=== PATIENT | female | born 1955 | race African-American/Black ===

== ENCOUNTER 2016-10-30 09:48 | Outpatient (CLI) | payer MEDICARE ==
[2016-10-30 10:42] LABS: ALT (SGPT) 13 U/L (0-55); AST (SGOT) 7 U/L (5-34); Albumin 4.2 g/dL (3.5-5.0); Alkaline Phosphatase 81 U/L (40-150); Anion Gap 13 mmol/L (10-20); BUN (Urea Nitrogen) 18 mg/dL (9.8-20.1); Bilirubin, Total 0.5 mg/dL (0.2-1.2); Calc. Creatinine Clearance 0 mL/min (70-130); Calcium 9.7 mg/dL (7.8-10.44); Carbon Dioxide 32 mmol/L (22-29); Cardiac Risk 5.7 (Less than 4.5); Chloride 96 mmol/L (98-107); Cholesterol 205 mg/dL (< 200 Desired); Estimated GFR-MDRD Greater than 90; Globulin 3.4 g/dL (2.4-3.5); Glucose 289 mg/dL (70-105); HDL Cholesterol 36 mg/dL (>60 Neg Risk); LDL Cholesterol, Calculated 130 mg/dL; Potassium 3.7 mmol/L (3.5-5.1); Protein, Total 7.6 g/dL (6.0-8.3); Sodium 137 mmol/L (136-145); Triglycerides 197 mg/dL (Less than 150)
== END 2016-10-30 09:49 | disposition home or self-care (01) ==
LOC: MADLABBHPM 09:48
PROVIDERS: ATTEND Family Medicine
DX: E11.65 Type 2 diabetes mellitus with hyperglycemia (principal)
CPT/HCPCS: 36415; 80053; 80061; 83036; 84443

== ENCOUNTER 2016-11-01 11:28 | Outpatient (CLI) | payer MEDICARE ==
[2016-11-01 18:35] LABS: Protein, Urine 30 mg/dL (1-14)
[2016-11-01 20:04] LABS: Collection Duration 24 hrs; Protein - 24 Hr 345 mg/24 hr (Less than 300); Urine Total Volume 1150 mL (600-1600)
== END 2016-11-01 11:29 | disposition home or self-care (01) ==
LOC: MADLABBHPM 11:28
PROVIDERS: ATTEND Family Medicine
DX: R80.9 Proteinuria, unspecified (principal)
CPT/HCPCS: 84156

== ENCOUNTER 2016-11-07 09:13 | Outpatient (CLI) | payer MEDICARE ==
--- NOTE | 2016-11-07 10:22 | RAD ---
LEFT SHOULDER THREE VIEWS: History: Fall three months ago, chronic pain. Comparison: None. FINDINGS: No acute fracture or malalignment. Mild degenerative disease of the acromioclavicular joint. There i s calcific tendinosis of the rotator cuff at the level of the supraspinatus tendon. IMPRESSION: 1. No acute fracture or malalignment. 2. Mild calcific tendinosis of the rotator cuff. 3. No acute fracture or malalignment. POS: [facility]
== END 2016-11-07 09:14 | disposition home or self-care (01) ==
LOC: MADRAD 09:13
PROVIDERS: ATTEND Family Medicine
DX: M25.512 Pain in left shoulder (principal)

== ENCOUNTER 2017-01-06 08:30 | Outpatient (CLI) | payer MEDICARE, OTHER ==
[2017-01-06 09:08] LABS: Hemoglobin A1c 8.5 % (4.0-6.0)
[2017-01-06 09:10] LABS: ALT (SGPT) 19 U/L (8-55); AST (SGOT) 9 U/L (5-34); Alkaline Phosphatase 82 U/L (40-150); Anion Gap 12 mmol/L (10-20); BUN (Urea Nitrogen) 12 mg/dL (9.8-20.1); Bilirubin, Total 0.4 mg/dL (0.2-1.2); Calc. Creatinine Clearance 0 mL/min (70-130); Carbon Dioxide 27 mmol/L (22-29); Cardiac Risk 4.6 (Less than 4.5); Chloride 106 mmol/L (98-107); Cholesterol 175 mg/dl (< 200 Desired); Estimated GFR-MDRD Greater than 90; Globulin 3.1 g/dL (2.4-3.5); Glucose 134 mg/dL (70-105); HDL Cholesterol 38 mg/dL (>60 Neg Risk); LDL Cholesterol, Calculated 115 mg/dL; Protein, Total 7.1 g/dL (6.0-8.3); Sodium 141 mmol/L (136-145); Triglycerides 111 mg/dL (Less than 150)
== END 2017-01-06 08:31 ==
LOC: MADLABBHPM 08:30
PROVIDERS: ATTEND Family Medicine
DX: E11.65 Type 2 diabetes mellitus with hyperglycemia (principal)
CPT/HCPCS: 36415; 80053; 80061; 83036

== ENCOUNTER 2018-04-28 23:32 | Emergency (ER) | payer MEDICARE ==
[2018-04-29 00:27] LABS: INR-International Normal Ratio 0.9
[2018-04-29 00:28] LABS: PTT 31.6 SEC (22.9-36.1)
[2018-04-29 00:37] LABS: ALT (SGPT) 14 U/L (8-55); AST (SGOT) 8 U/L (5-34); Albumin 4.1 g/dL (3.5-5.0); Alkaline Phosphatase 80 U/L (40-150); Anion Gap 15 mmol/L (10-20); BUN (Urea Nitrogen) 18 mg/dL (9.8-20.1); Bilirubin, Total 0.3 mg/dL (0.2-1.2); Calc. Creatinine Clearance 0 mL/min (70-130); Calcium 9.6 mg/dL (7.8-10.44); Carbon Dioxide 28 mmol/L (22-29); Chloride 101 mmol/L (98-107); Estimated GFR-MDRD 84; Globulin 3.4 g/dL (2.4-3.5); Glucose 140 mg/dL (70-105); Potassium 3.7 mmol/L (3.5-5.1); Protein, Total 7.5 g/dL (6.0-8.3); Sodium 140 mmol/L (136-145)
[2018-04-29 00:40] LABS: Eosinophils 3 % (0-10); Hemoglobin 14.5 g/dL (12.0-16.0); Lymphocytes 42 % (21-51); MDiff Complete? YES; Mean Corpuscular HGB CONC 33.7 g/dL (32.0-36.0); Mean Corpuscular Hemoglobin 29.9 pg (27.0-31.0); Mean Corpuscular Volume 88.9 fL (78.0-98.0); Mean Platelet Volume 6.3 fL (7.4-10.4); Monocytes 2 % (0-10); Neutrophil 50 % (42-75); PLT Morphology Comment Appears Adequate; Platelet Count 311 thou/uL (130-400); RBC Distribution Width 11.8 % (11.5-14.5); RBC Morphology Normal; Reactive Lymphocytes 3 % (0-10); Red Blood Cell (RBC) Count 4.83 mill/uL (4.20-5.40); White Blood Cell (WBC) Count 10.1 thou/uL (4.8-10.8)
== END 2018-04-29 01:22 | disposition home or self-care (01) ==
LOC: MADERS 23:32
DX: T63.001A Toxic effect of unspecified snake venom, accidental (unintentional), initial encounter (principal); E11.9 Type 2 diabetes mellitus without complications; E78.5 Hyperlipidemia, unspecified; E66.9 Obesity, unspecified; F41.9 Anxiety disorder, unspecified; F32.9 Major depressive disorder, single episode, unspecified; F17.210 Nicotine dependence, cigarettes, uncomplicated; I10 Essential (primary) hypertension; K21.9 Gastro-esophageal reflux disease without esophagitis
CPT/HCPCS: 36415; 80053; 85025; 85384; 85610; 85730; 99283

== ENCOUNTER 2018-04-29 07:08 | Emergency (ER) | payer MEDICARE ==
[2018-04-29 08:20] LABS: Hemoglobin 14.3 g/dL (12.0-16.0); Mean Corpuscular HGB CONC 33.4 g/dL (32.0-36.0); Mean Corpuscular Hemoglobin 29.7 pg (27.0-31.0); Mean Platelet Volume 6.2 fL (7.4-10.4); Platelet Count 300 thou/uL (130-400); RBC Distribution Width 11.9 % (11.5-14.5); Red Blood Cell (RBC) Count 4.81 mill/uL (4.20-5.40)
[2018-04-29 08:27] LABS: INR-International Normal Ratio 0.9; PTT 32.7 SEC (22.9-36.1); Prothrombin Time 12.2 SEC (12.0-14.7)
[2018-04-29 08:29] LABS: Anisocytosis SLIGHT = 6-15 cells (100X) (0-5/hpf); Lymphocytes 35 % (21-51); MDiff Complete? YES; Manual Diff?? YES; Monocytes 10 % (0-10); Neutrophil 55 % (42-75)
[2018-04-29 08:30] LABS: PLT Morphology Comment Appears Increased
[2018-04-29 08:37] LABS: ALT (SGPT) 14 U/L (8-55); AST (SGOT) 7 U/L (5-34); Alkaline Phosphatase 80 U/L (40-150); Anion Gap 15 mmol/L (10-20); BUN (Urea Nitrogen) 16 mg/dL (9.8-20.1); Bilirubin, Total 0.3 mg/dL (0.2-1.2); Calc. Creatinine Clearance 0 mL/min (70-130); Calcium 9.5 mg/dL (7.8-10.44); Carbon Dioxide 27 mmol/L (22-29); Chloride 102 mmol/L (98-107); Estimated GFR-MDRD Greater than 90; Globulin 3.4 g/dL (2.4-3.5); Glucose 141 mg/dL (70-105); Potassium 3.7 mmol/L (3.5-5.1); Protein, Total 7.4 g/dL (6.0-8.3); Sodium 140 mmol/L (136-145)
== END 2018-04-29 08:55 | disposition home or self-care (01) ==
LOC: MADERS 07:08
DX: T63.061A Toxic effect of venom of other North and South American snake, accidental (unintentional), initial encounter (principal); M79.671 Pain in right foot; E11.9 Type 2 diabetes mellitus without complications; E78.5 Hyperlipidemia, unspecified; F41.9 Anxiety disorder, unspecified; F32.9 Major depressive disorder, single episode, unspecified; E66.9 Obesity, unspecified; F17.210 Nicotine dependence, cigarettes, uncomplicated; I10 Essential (primary) hypertension; K21.9 Gastro-esophageal reflux disease without esophagitis
CPT/HCPCS: 85384; 99283

== ENCOUNTER 2018-10-06 14:10 | Emergency (ER) | payer MEDICARE ==
--- NOTE | 2018-10-06 14:56 | RAD ---
LEFT ANKLE 3 VIEWS: Date: 10/06/18 HISTORY: Ankle injury. FINDINGS: There are vascular calcifications noted. The lateral view is very obliqued and therefore difficult to assess. There is spurring along the medial malleolus. There is ossification which is near the talona vicular joint. It may be related to an os naviculare, difficult to assess on these views. Calcaneal s purs are present. I do not see any signs of fracture. IMPRESSION: No evidence of fracture. Assessment of the foot is limited due to the orientation of the images. POS: [facility]
[2018-10-06] MEDS ORDERED: HYDROcodone/Acetaminophen 5/325 mg Tablet ONE (15:47)
[2018-10-06] MEDS ORDERED: Clindamycin 150 MG CAP ONE (15:47)
== END 2018-10-06 16:11 | disposition short-term general hospital (02) ==
LOC: MADERS 14:10
DX: S90.512A Abrasion, left ankle, initial encounter (principal); M79.89 Other specified soft tissue disorders; L03.116 Cellulitis of left lower limb; E11.9 Type 2 diabetes mellitus without complications; E78.5 Hyperlipidemia, unspecified; E66.9 Obesity, unspecified; M10.9 Gout, unspecified; M19.90 Unspecified osteoarthritis, unspecified site; K21.9 Gastro-esophageal reflux disease without esophagitis; F41.9 Anxiety disorder, unspecified; F32.9 Major depressive disorder, single episode, unspecified; F17.210 Nicotine dependence, cigarettes, uncomplicated; Z79.51 Long term (current) use of inhaled steroids; Z79.899 Other long term (current) drug therapy; W19.XXXA Unspecified fall, initial encounter

== ENCOUNTER 2019-01-28 12:20 | Outpatient (CLI) | payer MEDICARE ==
[2019-01-28 13:05] LABS: #Basophils 0.1 thou/uL (0.0-0.2); #Eosinphils 0.1 thou/uL (0.0-0.7); #Lymphocytes 2.5 thou/uL (1.20-3.40); #Monocytes 0.5 thou/uL (0.11-0.59); #Neutrophils 4.4 thou/uL (1.40-6.50); %Basophils 1.7 % (0.0-1.0); %Eosinophils 1.8 % (0.0-10.0); %Lymphocytes 32.5 % (21.0-51.0); %Monocytes 6.3 % (0.0-10.0); %Neutrophils 57.8 % (42.0-75.0); Hemoglobin 14.6 g/dL (12.0-16.0); Mean Corpuscular Hemoglobin 28.4 pg (27.0-31.0); Mean Corpuscular Volume 88.8 fL (78.0-98.0); Mean Platelet Volume 6.3 fL (7.4-10.4); Platelet Count 250 thou/uL (130-400); RBC Distribution Width 12.4 % (11.5-14.5); Red Blood Cell (RBC) Count 5.13 mill/uL (4.20-5.40); White Blood Cell (WBC) Count 7.6 thou/uL (4.8-10.8)
[2019-01-28 13:20] LABS: INR-International Normal Ratio 0.9; PTT 31.8 SEC (22.9-36.1); Prothrombin Time 12.3 SEC (12.0-14.7)
== END 2019-01-28 12:21 | disposition home or self-care (01) ==
LOC: MADLAB 12:20
PROVIDERS: ATTEND Chiropractor
DX: Z01.812 Encounter for preprocedural laboratory examination (principal)
CPT/HCPCS: 36415; 85025; 85610; 85730

== ENCOUNTER 2020-04-10 11:40 | Emergency (ER) | payer MEDICARE ==
--- NOTE | 2020-04-10 12:20 | RAD ---
EXAM: XR Chest 1 View Portable PROVIDED CLINICAL HISTORY: Dyspnea COMPARISON: 07/22/2016 FINDINGS: Cardiac silhouette remains enlarged. Prominence of the pulmonary vasculature and pulmonary interstiti um persists. Evaluation is limited by patient body habitus. No lobar consolidation, large effusion or pneumothorax evident. IMPRESSION: Cardiomegaly and findings suggesting congestive failure. Alveolar edema is not excluded. Follow-up is recommended.
[2020-04-10 12:41] LABS: #Basophils 0.1 thou/uL (0.0-0.2); #Eosinphils 0.2 thou/uL (0.0-0.7); #Lymphocytes 2.3 thou/uL (1.20-3.40); #Monocytes 0.5 thou/uL (0.11-0.59); #Neutrophils 6.7 thou/uL (1.40-6.50); %Basophils 0.6 % (0.0-1.0); %Eosinophils 1.8 % (0.0-10.0); %Lymphocytes 23.1 % (21.0-51.0); %Monocytes 5.5 % (0.0-10.0); %Neutrophils 68.9 % (42.0-75.0); Hemoglobin 12.3 g/dL (12.0-16.0); Mean Corpuscular HGB CONC 31.8 g/dL (32.0-36.0); Mean Corpuscular Hemoglobin 27.7 pg (27.0-31.0); Mean Corpuscular Volume 87.1 fL (78.0-98.0); Mean Platelet Volume 6.7 fL (7.4-10.4); Platelet Count 275 thou/uL (130-400); RBC Distribution Width 13.8 % (11.5-14.5); Red Blood Cell (RBC) Count 4.42 mill/uL (4.20-5.40); White Blood Cell (WBC) Count 9.8 thou/uL (4.8-10.8)
[2020-04-10 12:53] LABS: ALT (SGPT) 12 U/L (8-55); AST (SGOT) 7 U/L (5-34); Albumin 3.5 g/dL (3.4-4.8); Alkaline Phosphatase 77 U/L (40-110); Anion Gap 13 mmol/L (10-20); BUN (Urea Nitrogen) 15 mg/dL (9.8-20.1); Bilirubin, Total 0.4 mg/dL (0.2-1.2); Calc. Creatinine Clearance 0 mL/min (70-130); Calcium 8.5 mg/dL (7.8-10.44); Carbon Dioxide 27 mmol/L (23-31); Chloride 104 mmol/L (98-107); Estimated GFR-MDRD Greater than 90; Globulin 3.3 g/dL (2.4-3.5); Glucose 158 mg/dL (80-115); Protein, Total 6.8 g/dL (6.0-8.3); Sodium 141 mmol/L (136-145)
[2020-04-10] MEDS ORDERED: Furosemide 40 MG TAB ONE (14:35)
[2020-04-10] MEDS ORDERED: Potassium Chloride 20 MEQ TAB ONE (14:35)
[2020-04-10] MEDS ORDERED: Magnesium Oxide 400 MG TAB PO ONE (14:49)
== END 2020-04-10 14:58 | disposition home or self-care (01) ==
LOC: MADERS 11:40
DX: I11.0 Hypertensive heart disease with heart failure (principal); I50.9 Heart failure, unspecified; E87.6 Hypokalemia; E11.9 Type 2 diabetes mellitus without complications; K21.9 Gastro-esophageal reflux disease without esophagitis; E78.5 Hyperlipidemia, unspecified; E78.00 Pure hypercholesterolemia, unspecified; E66.9 Obesity, unspecified; F32.9 Major depressive disorder, single episode, unspecified; M10.9 Gout, unspecified; M47.816 Spondylosis without myelopathy or radiculopathy, lumbar region; F41.9 Anxiety disorder, unspecified; F17.210 Nicotine dependence, cigarettes, uncomplicated; Z79.899 Other long term (current) drug therapy; Z79.4 Long term (current) use of insulin
CPT/HCPCS: 71045; 83880; 84484; 85025; 93005

== ENCOUNTER 2020-08-21 02:39 | Emergency (ER) | payer MEDICARE ==
[2020-08-21] MEDS ORDERED: Ondansetron ODT 4 MG TAB ONE (03:05)
[2020-08-21 03:44] LABS: Hemoglobin 13.3 g/dL (12.0-16.0); Mean Corpuscular HGB CONC 32.4 g/dL (32.0-36.0); Mean Corpuscular Hemoglobin 28.4 pg (27.0-31.0); Mean Corpuscular Volume 87.8 fL (78.0-98.0); Mean Platelet Volume 7.3 fL (7.4-10.4); Platelet Count 265 thou/uL (130-400); RBC Distribution Width 12.8 % (11.5-14.5); White Blood Cell (WBC) Count 11.5 thou/uL (4.8-10.8)
[2020-08-21] MEDS ORDERED: Morphine 4 MG/ML VIAL ONE (03:44)
[2020-08-21 03:51] LABS: Band 1 % (5-11); Eosinophils 1 % (0-10); Lymphocytes 16 % (21-51); MDiff Complete? YES; Monocytes 7 % (0-10); Neutrophil 74 % (42-75); Platelet Morphology Comment Appears Adequate; RBC Morphology Normal
[2020-08-21 03:54] LABS: Anion Gap 16 mmol/L (10-20); BUN (Urea Nitrogen) 14 mg/dL (9.8-20.1); Calc. Creatinine Clearance 0 mL/min (70-130); Calcium 8.2 mg/dL (7.8-10.44); Carbon Dioxide 25 mmol/L (23-31); Chloride 103 mmol/L (98-107); Glucose 90 mg/dL (80-115); Magnesium 1.7 mg/dL (1.6-2.6); Potassium 3.4 mmol/L (3.5-5.1); Sodium 141 mmol/L (136-145)
[2020-08-21] MEDS ORDERED: Potassium Chloride 20 MEQ TAB ONE (04:04)
== END 2020-08-21 04:24 | disposition short-term general hospital (02) ==
LOC: MADERS 02:39
DX: M79.662 Pain in left lower leg (principal); M79.661 Pain in right lower leg; R60.0 Localized edema; M10.9 Gout, unspecified; E11.9 Type 2 diabetes mellitus without complications; J44.9 Chronic obstructive pulmonary disease, unspecified; I10 Essential (primary) hypertension; E78.5 Hyperlipidemia, unspecified; M19.90 Unspecified osteoarthritis, unspecified site; M51.36 Other intervertebral disc degeneration, lumbar region; E55.9 Vitamin D deficiency, unspecified; K21.9 Gastro-esophageal reflux disease without esophagitis; F17.210 Nicotine dependence, cigarettes, uncomplicated; Z79.899 Other long term (current) drug therapy; Z79.84 Long term (current) use of oral hypoglycemic drugs
CPT/HCPCS: 80048; 83735; 85025; 96374; J2270; Q0162

== ENCOUNTER 2020-09-25 08:50 | Emergency (ER) | payer MEDICARE ==
--- NOTE | 2020-09-25 18:40 | RAD ---
CHEST TWO VIEWS: 09/25/20 10:39 a.m. HISTORY: Chest pain. Shortness of breath. COMPARISON: 04/10/2020 FINDINGS: There is enlargement of the cardiac silhouette. Dorsal column stimulators overly the lower thoracic r egion. There is no pneumothorax. There is nonspecific interstitial opacity in the perihilar regions i n both lung bases with small bilateral pleural effusions. IMPRESSION: Pulmonary vascular congestion with perihilar and bibasilar interstitial prominence and small bilatera l pleural effusions. Findings suggest interstitial edema. Recommend short-term follow-up imaging following treatment to do cument resolution. Nonspecific infectious pneumonitis cannot be excluded. POS: [facility]
[2020-09-26 13:07] LABS: Hemoglobin 13.3 g/dL (12.0-16.0); Mean Corpuscular HGB CONC 32.3 g/dL (32.0-36.0); Mean Corpuscular Hemoglobin 28.7 pg (27.0-31.0); Mean Corpuscular Volume 88.7 fL (78.0-98.0); Platelet Count 270 thou/uL (130-400); RBC Distribution Width 13.1 % (11.5-14.5); Red Blood Cell (RBC) Count 4.65 mill/uL (4.20-5.40); White Blood Cell (WBC) Count 9.9 thou/uL (4.8-10.8)
[2020-09-26 13:08] LABS: #Basophils 0.2 thou/uL (0.0-0.2); #Eosinphils 0.2 thou/uL (0.0-0.7); #Lymphocytes 1.2 thou/uL (1.20-3.40); #Monocytes 0.9 thou/uL (0.11-0.59); #Neutrophils 7.4 thou/uL (1.40-6.50); %Basophils 1.7 % (0.0-1.0); %Eosinophils 2.3 % (0.0-10.0); %Lymphocytes 12.2 % (21.0-51.0); %Monocytes 8.8 % (0.0-10.0); Mean Platelet Volume 6.9 fL (7.4-10.4)
[2020-09-26 13:09] LABS: Potassium 3.2 mmol/L (3.5-5.1); Sodium 140 mmol/L (136-145)
[2020-09-26 13:10] LABS: AST (SGOT) 9 U/L (5-34); Albumin 3.7 g/dL (3.4-4.8); Alkaline Phosphatase 81 U/L (40-110); Anion Gap 14 mmol/L (10-20); BUN (Urea Nitrogen) 10 mg/dL (9.8-20.1); Bilirubin, Total 0.6 mg/dL (0.2-1.2); Calc. Creatinine Clearance 0 mL/min (70-130); Calcium 8.5 mg/dL (7.8-10.44); Carbon Dioxide 29 mmol/L (23-31); Chloride 100 mmol/L (98-107); Globulin 3.3 g/dL (2.4-3.5); Glucose 314 mg/dL (80-115)
[2020-09-26 13:12] LABS: ALT (SGPT) 14 U/L (8-55)
[2020-09-26 13:21] LABS: Troponin I 0.011 ng/mL (< 0.028)
[2020-09-26 14:01] LABS: Base Excess-Venous 2.1 mmol/L (-2.0 to 3.0); Bicarbonate (HCO3v) 29.7 mmol/L (22.0-28.0); CO2 Tension (PvCO2) 57.8 mmHg (40.0-50.0)
[2020-09-26 14:02] LABS: Calcium, Ionized 1.06 mmol/L (1.15-1.33); Chloride 101 mmol/L (98-107); Hemoglobin - Calc 14.1 g/dL (12.0-16.0); Potassium 3.2 mmol/L (3.5-5.1); Sodium 141 mmol/L (138-145); T. Carbon Dioxide 31.5 mmol/L (22.0-28.0); vO2 Saturation-calc 94.2 % (60.0-85.0)
== END 2020-09-25 11:49 | disposition home or self-care (01) ==
LOC: MADERS 08:50
DX: I11.0 Hypertensive heart disease with heart failure (principal); I50.9 Heart failure, unspecified; E87.6 Hypokalemia; E11.65 Type 2 diabetes mellitus with hyperglycemia; J44.9 Chronic obstructive pulmonary disease, unspecified; M10.9 Gout, unspecified; Z79.899 Other long term (current) drug therapy
CPT/HCPCS: 36415; 71046; 80053; 82330; 82435; 82803; 83880; 84132; 84295; 84484; 85014; 85025

== ENCOUNTER 2021-01-04 04:51 | Emergency (ER) | payer MEDICARE ==
[2021-01-04] MEDS ORDERED: HYDROcodone/Acetaminophen 10/325 mg Tablet ONE (05:39)
[2021-01-04] MEDS ORDERED: Ketorolac Tromethamine 30 MG/ML VIAL ONE (05:40)
[2021-01-04] MEDS ORDERED: Gabapentin 100 MG CAP ONE (05:40)
[2021-01-04] MEDS ORDERED: Acetaminophen 325 MG TAB ONE (05:40)
== END 2021-01-04 06:10 | disposition home or self-care (01) ==
LOC: MADERS 04:51
DX: M71.22 Synovial cyst of popliteal space [Baker], left knee (principal); E11.9 Type 2 diabetes mellitus without complications; E78.5 Hyperlipidemia, unspecified; I10 Essential (primary) hypertension; J44.9 Chronic obstructive pulmonary disease, unspecified; F17.210 Nicotine dependence, cigarettes, uncomplicated; Z79.899 Other long term (current) drug therapy
CPT/HCPCS: 96374; J1885

== ENCOUNTER 2021-02-01 13:32 | Inpatient (IN) | payer MEDICARE ==
[2021-02-01 15:25] VITALS: BMI 46.7
[2021-02-01] MEDS ORDERED: Dextrose 50% Abboject 50 ML SYRINGE SLOW IVP PRN (18:55)
[2021-02-01] MEDS ORDERED: Gabapentin 300 MG CAP PO SCH (21:00)
[2021-02-01] MEDS: Atorvastatin Calcium 40 MG TAB PO SCH (21:21)
[2021-02-01] MEDS: Gabapentin 300 MG CAP PO SCH (21:21)
[2021-02-01] MEDS: Colchicine 0.6 MG TAB PO SCH (21:21)
[2021-02-01] MEDS: Lantus 1000 UNITS/10 ML VIAL SC SCH (21:24)
[2021-02-02] MEDS: Lantus 1000 UNITS/10 ML VIAL SC SCH ×2 (08:19→21:06)
[2021-02-02] MEDS: Venlafaxine HCl 37.5 MG TAB PO SCH (08:20)
[2021-02-02] MEDS: Losartan Potassium 50 MG TAB PO SCH ×2 (08:20→08:21)
[2021-02-02] MEDS: Amlodipine 5 MG TAB PO SCH (08:20)
[2021-02-02] MEDS: Ezetimibe 10 MG TAB PO SCH (08:21)
[2021-02-02] MEDS: Colchicine 0.6 MG TAB PO SCH ×2 (08:23→21:07)
[2021-02-02] MEDS: Gabapentin 300 MG CAP PO SCH ×2 (08:23→21:07)
[2021-02-02] MEDS: Allopurinol 100 MG TAB PO SCH (08:23)
[2021-02-02] MEDS ORDERED: Colchicine 0.6 MG TAB PO SCH (09:00)
[2021-02-02] MEDS: Atorvastatin Calcium 40 MG TAB PO SCH (21:07)
[2021-02-03] MEDS: Venlafaxine HCl 37.5 MG TAB PO SCH (08:49)
[2021-02-03] MEDS: Colchicine 0.6 MG TAB PO SCH ×2 (08:49→20:08)
[2021-02-03] MEDS: Ezetimibe 10 MG TAB PO SCH (08:49)
[2021-02-03] MEDS: Amlodipine 5 MG TAB PO SCH (08:49)
[2021-02-03] MEDS: Allopurinol 100 MG TAB PO SCH (08:49)
[2021-02-03] MEDS: Gabapentin 300 MG CAP PO SCH ×2 (08:50→20:08)
[2021-02-03] MEDS: Lantus 1000 UNITS/10 ML VIAL SC SCH ×2 (08:51→20:08)
[2021-02-03] MEDS: Losartan Potassium 50 MG TAB PO SCH (08:52)
[2021-02-03] MEDS: Liraglutide [Victoza 2-Pak] 0.6 MG/0.1 ML Pen.Injctr SC SCH (14:19)
[2021-02-03] MEDS: Atorvastatin Calcium 40 MG TAB PO SCH (20:08)
[2021-02-03] MEDS: HumaLOG 300 UNITS/3 ML VIAL SC PRN (21:02)
[2021-02-04] MEDS: Acetaminophen 500 MG TAB PO PRN (02:15)
[2021-02-04 05:54] LABS: Anion Gap 11 mmol/L (10-20); BUN (Urea Nitrogen) 25 mg/dL (9.8-20.1); Calc. Creatinine Clearance 155 mL/min (70-130); Calcium 8.3 mg/dL (7.8-10.44); Carbon Dioxide 27 mmol/L (23-31); Chloride 110 mmol/L (98-107); Glucose 108 mg/dL (80-115); Potassium 3.9 mmol/L (3.5-5.1); Sodium 144 mmol/L (136-145)
[2021-02-04] MEDS: Lantus 1000 UNITS/10 ML VIAL SC SCH ×2 (09:37→21:01)
[2021-02-04] MEDS: Gabapentin 300 MG CAP PO SCH ×2 (09:38→21:01)
[2021-02-04] MEDS: Losartan Potassium 50 MG TAB PO SCH (09:38)
[2021-02-04] MEDS: Colchicine 0.6 MG TAB PO SCH ×2 (09:38→21:01)
[2021-02-04] MEDS: Ezetimibe 10 MG TAB PO SCH (09:38)
[2021-02-04] MEDS: Allopurinol 100 MG TAB PO SCH (09:39)
[2021-02-04] MEDS: Venlafaxine HCl 37.5 MG TAB PO SCH (09:39)
[2021-02-04] MEDS: Amlodipine 5 MG TAB PO SCH (09:39)
[2021-02-04] MEDS: Atorvastatin Calcium 40 MG TAB PO SCH (21:01)
[2021-02-05] MEDS: Acetaminophen 500 MG TAB PO PRN (08:36)
[2021-02-05] MEDS: Colchicine 0.6 MG TAB PO SCH ×2 (08:37→21:04)
[2021-02-05] MEDS: Losartan Potassium 50 MG TAB PO SCH (08:37)
[2021-02-05] MEDS: Gabapentin 300 MG CAP PO SCH ×2 (08:37→21:04)
[2021-02-05] MEDS: Venlafaxine HCl 37.5 MG TAB PO SCH (08:37)
[2021-02-05] MEDS: Ezetimibe 10 MG TAB PO SCH (08:37)
[2021-02-05] MEDS: Allopurinol 100 MG TAB PO SCH (08:38)
[2021-02-05] MEDS: Amlodipine 5 MG TAB PO SCH (08:38)
[2021-02-05] MEDS: Ibuprofen 600 MG TAB PO PRN (10:25)
[2021-02-05] MEDS: HumaLOG 300 UNITS/3 ML VIAL SC PRN ×2 (17:33→21:05)
[2021-02-05] MEDS ORDERED: Oxybutynin ER 5 MG TAB PO SCH (21:00)
[2021-02-05] MEDS: Atorvastatin Calcium 40 MG TAB PO SCH (21:04)
[2021-02-05] MEDS: Lantus 1000 UNITS/10 ML VIAL SC SCH (21:05)
[2021-02-06] MEDS: Lantus 1000 UNITS/10 ML VIAL SC SCH ×2 (08:25→21:09)
[2021-02-06] MEDS: Gabapentin 300 MG CAP PO SCH ×2 (08:26→21:08)
[2021-02-06] MEDS: Oxybutynin ER 5 MG TAB PO SCH (08:27)
[2021-02-06] MEDS: Venlafaxine HCl 37.5 MG TAB PO SCH (08:27)
[2021-02-06] MEDS: Allopurinol 100 MG TAB PO SCH (08:27)
[2021-02-06] MEDS: Ezetimibe 10 MG TAB PO SCH (08:28)
[2021-02-06] MEDS: Amlodipine 5 MG TAB PO SCH (08:28)
[2021-02-06] MEDS: Colchicine 0.6 MG TAB PO SCH ×2 (08:28→21:09)
[2021-02-06] MEDS: Losartan Potassium 50 MG TAB PO SCH (08:28)
[2021-02-06] MEDS: Acetaminophen 500 MG TAB PO PRN (14:39)
[2021-02-06] MEDS: Atorvastatin Calcium 40 MG TAB PO SCH (21:08)
[2021-02-07] MEDS: Acetaminophen 500 MG TAB PO PRN (08:32)
[2021-02-07] MEDS: Amlodipine 5 MG TAB PO SCH (08:33)
[2021-02-07] MEDS: Oxybutynin ER 5 MG TAB PO SCH (08:33)
[2021-02-07] MEDS: Colchicine 0.6 MG TAB PO SCH ×2 (08:33→21:19)
[2021-02-07] MEDS: Gabapentin 300 MG CAP PO SCH ×2 (08:33→21:20)
[2021-02-07] MEDS: Lantus 1000 UNITS/10 ML VIAL SC SCH ×2 (08:34→22:06)
[2021-02-07] MEDS: Losartan Potassium 50 MG TAB PO SCH (08:34)
[2021-02-07] MEDS: Venlafaxine HCl 37.5 MG TAB PO SCH (08:34)
[2021-02-07] MEDS: Ezetimibe 10 MG TAB PO SCH (08:34)
[2021-02-07] MEDS: Allopurinol 100 MG TAB PO SCH (08:34)
[2021-02-07] MEDS: HumaLOG 300 UNITS/3 ML VIAL SC PRN ×2 (11:51→17:04)
[2021-02-07] MEDS: Atorvastatin Calcium 40 MG TAB PO SCH (21:19)
[2021-02-07] MEDS ORDERED: Ondansetron ODT 4 MG TAB SL PRN (21:39)
[2021-02-08] MEDS: Lantus 1000 UNITS/10 ML VIAL SC SCH ×3 (01:34→21:04)
[2021-02-08] MEDS: Venlafaxine HCl 37.5 MG TAB PO SCH (08:05)
[2021-02-08] MEDS: Amlodipine 5 MG TAB PO SCH (08:06)
[2021-02-08] MEDS: Allopurinol 100 MG TAB PO SCH (08:06)
[2021-02-08] MEDS: Losartan Potassium 50 MG TAB PO SCH (08:06)
[2021-02-08] MEDS: Colchicine 0.6 MG TAB PO SCH ×2 (08:06→21:03)
[2021-02-08] MEDS: Ezetimibe 10 MG TAB PO SCH (08:06)
[2021-02-08] MEDS: Gabapentin 300 MG CAP PO SCH ×2 (08:06→21:04)
[2021-02-08] MEDS: Oxybutynin ER 5 MG TAB PO SCH (08:06)
[2021-02-08] MEDS: Acetaminophen 500 MG TAB PO PRN ×2 (10:51→19:29)
[2021-02-08] MEDS: Ibuprofen 600 MG TAB PO PRN (12:47)
[2021-02-08] MEDS ORDERED: Lisinopril 20 MG TAB PO SCH ×2 (17:45→18:00)
[2021-02-08] MEDS ORDERED: hydrALAZINE 25 MG TAB PO PRN (18:24)
[2021-02-08] MEDS ORDERED: hydrALAZINE 25 MG TAB PO SCH (18:30)
[2021-02-08] MEDS: Atorvastatin Calcium 40 MG TAB PO SCH (21:03)
[2021-02-09 07:59] VITALS: BP 142/66; TEMP 97.6
[2021-02-09] MEDS: Lantus 1000 UNITS/10 ML VIAL SC SCH (08:43)
[2021-02-09] MEDS: Oxybutynin ER 5 MG TAB PO SCH (08:45)
[2021-02-09] MEDS: Ibuprofen 600 MG TAB PO PRN (08:45)
[2021-02-09] MEDS: Venlafaxine HCl 37.5 MG TAB PO SCH (08:45)
[2021-02-09] MEDS: Amlodipine 5 MG TAB PO SCH (08:45)
[2021-02-09] MEDS: Allopurinol 100 MG TAB PO SCH (08:46)
[2021-02-09] MEDS: Colchicine 0.6 MG TAB PO SCH (08:46)
[2021-02-09] MEDS: Ezetimibe 10 MG TAB PO SCH (08:46)
[2021-02-09] MEDS: Gabapentin 300 MG CAP PO SCH (08:46)
[2021-02-09] MEDS: Losartan Potassium 50 MG TAB PO SCH (08:47)
[2021-02-09] MEDS ORDERED: Lisinopril 20 MG TAB PO SCH (09:00)
== END 2021-02-09 11:40 | disposition home health service (06) | DRG 948 ==
LOC: MADMS 15:20
PROVIDERS: ADMIT Family Medicine; ATTEND Family Medicine
DX: R53.81 Other malaise (principal); Z68.42 Body mass index [BMI] 45.0-49.9, adult; I10 Essential (primary) hypertension; E66.01 Morbid (severe) obesity due to excess calories; F41.9 Anxiety disorder, unspecified; F32.9 Major depressive disorder, single episode, unspecified; J45.909 Unspecified asthma, uncomplicated; G89.29 Other chronic pain; F17.210 Nicotine dependence, cigarettes, uncomplicated; M10.9 Gout, unspecified; E11.610 Type 2 diabetes mellitus with diabetic neuropathic arthropathy; E78.2 Mixed hyperlipidemia; W19.XXXA Unspecified fall, initial encounter; G47.33 Obstructive sleep apnea (adult) (pediatric); N32.81 Overactive bladder; E11.649 Type 2 diabetes mellitus with hypoglycemia without coma; Z88.1 Allergy status to other antibiotic agents; Z88.8 Allergy status to other drugs, medicaments and biological substances; Z91.040 Latex allergy status; Z88.2 Allergy status to sulfonamides; Z88.0 Allergy status to penicillin; Z79.4 Long term (current) use of insulin; Z79.899 Other long term (current) drug therapy; Z90.49 Acquired absence of other specified parts of digestive tract; Z90.710 Acquired absence of both cervix and uterus; Z96.82 Presence of neurostimulator; Z91.81 History of falling; Y92.009 Unspecified place in unspecified non-institutional (private) residence as the place of occurrence of the external cause
CPT/HCPCS: 36415; 36416; 80048; J1815; Q0162

== ENCOUNTER 2021-05-21 09:53 | Emergency (ER) | payer MEDICARE ==
[2021-05-21] MEDS ORDERED: Pantoprazole 40 MG VIAL ONE (10:56)
[2021-05-21] MEDS ORDERED: Ondansetron PF 4 MG/2 ML Vial ONE (10:56)
[2021-05-21 11:10] LABS: Bilirubin Negative (Negative); Blood, Urine Small (Negative); Glucose, Urine (Dipstick) Negative (Negative); Ketone, Urine Negative (Negative); Leukocyte Moderate (Negative); Nitrite Negative (Negative); Protein, Urine (Dipstick) > or equal to 300 mg/dL (Neg-Trace); Specific Gravity, Urine 1.025 (1.005-1.030); Urobilinogen 0.2 mg/dL (Less than 2)
[2021-05-21 11:12] LABS: Clarity Cloudy (Clear)
[2021-05-21 11:18] LABS: #Basophils 0.3 thou/uL (0.0-0.2); #Eosinphils 0.2 thou/uL (0.0-0.7); #Lymphocytes 1.3 thou/uL (1.20-3.40); #Monocytes 0.8 thou/uL (0.11-0.59); #Neutrophils 6.5 thou/uL (1.40-6.50); %Basophils 2.9 % (0.0-1.0); %Eosinophils 2.7 % (0.0-10.0); %Lymphocytes 14.3 % (21.0-51.0); %Monocytes 8.2 % (0.0-10.0); %Neutrophils 71.9 % (42.0-75.0); Hemoglobin 14.3 g/dL (12.0-16.0); Mean Corpuscular HGB CONC 31.4 g/dL (32.0-36.0); Mean Corpuscular Hemoglobin 28.9 pg (27.0-31.0); Mean Platelet Volume 6.3 fL (7.4-10.4); Platelet Count 338 thou/uL (130-400); RBC Distribution Width 13.1 % (11.5-14.5); Red Blood Cell (RBC) Count 4.96 mill/uL (4.20-5.40); White Blood Cell (WBC) Count 9.1 thou/uL (4.8-10.8)
[2021-05-21 11:19] LABS: WBC/HPF Greater Than 50 HPF (0-3)
[2021-05-21 11:20] LABS: Bacteria/HPF Rare-Few HPF (None Seen); RBC/HPF 0-3 HPF (0-3)
[2021-05-21 11:21] LABS: ALT (SGPT) 12 U/L (8-55); AST (SGOT) 8 U/L (5-34); Albumin 3.6 g/dL (3.4-4.8); Alkaline Phosphatase 87 U/L (40-110); Anion Gap 12 mmol/L (10-20); BUN (Urea Nitrogen) 16 mg/dL (9.8-20.1); Bilirubin, Total 0.5 mg/dL (0.2-1.2); Calc. Creatinine Clearance 0 mL/min (70-130); Calcium 9.3 mg/dL (7.8-10.44); Carbon Dioxide 26 mmol/L (23-31); Chloride 108 mmol/L (98-107); Globulin 3.3 g/dL (2.4-3.5); Glucose 103 mg/dL (80-115); Potassium 3.9 mmol/L (3.5-5.1); Protein, Total 6.9 g/dL (5.8-8.1); Sodium 142 mmol/L (136-145)
[2021-05-21 11:22] LABS: CK (CPK) 48 U/L (29-168); CRP (Inflammatory) Less than 0.50 mg/dL (= or < 0.5)
[2021-05-21] MEDS ORDERED: Ciprofloxacin Lactate/D5W 400 mg/200 ml Premix ONE (11:36)
== END 2021-05-21 13:10 | disposition home or self-care (01) ==
LOC: MADERS 09:53
DX: E11.649 Type 2 diabetes mellitus with hypoglycemia without coma (principal); N39.0 Urinary tract infection, site not specified; E78.5 Hyperlipidemia, unspecified; J44.9 Chronic obstructive pulmonary disease, unspecified; F17.210 Nicotine dependence, cigarettes, uncomplicated; Z79.899 Other long term (current) drug therapy
CPT/HCPCS: 36416; 71045; 80053; 81003; 81015; 82550; 83605; 84443; 84484; 85025; 86140; 87077; 87086; 87186; 93005; 94760; 96365; 96375; C9113; J0744; J2405

== ENCOUNTER 2021-07-12 17:43 | Emergency (ER) | payer MEDICARE ==
[~2021-07-12 17:43] MED LIST: Iopamidol 370 76% 100 ML VIAL ONE
[2021-07-12 18:41] LABS: #Basophils 0.1 thou/uL (0.0-0.2); #Eosinphils 0.1 thou/uL (0.0-0.7); #Lymphocytes 0.4 thou/uL (1.20-3.40); #Monocytes 0.4 thou/uL (0.11-0.59); #Neutrophils 8.4 thou/uL (1.40-6.50); %Basophils 0.8 % (0.0-1.0); %Eosinophils 0.7 % (0.0-10.0); %Lymphocytes 3.9 % (21.0-51.0); %Monocytes 4.1 % (0.0-10.0); %Neutrophils 90.5 % (42.0-75.0); Hemoglobin 14.3 g/dL (12.0-16.0); Mean Corpuscular HGB CONC 31.5 g/dL (32.0-36.0); Mean Corpuscular Hemoglobin 29.1 pg (27.0-31.0); Mean Corpuscular Volume 92.3 fL (78.0-98.0); Mean Platelet Volume 6.7 fL (7.4-10.4); Platelet Count 277 thou/uL (130-400); RBC Distribution Width 12.9 % (11.5-14.5); Red Blood Cell (RBC) Count 4.92 mill/uL (4.20-5.40); White Blood Cell (WBC) Count 9.3 thou/uL (4.8-10.8)
[2021-07-12 18:43] LABS: ALT (SGPT) 21 U/L (8-55); AST (SGOT) 13 U/L (5-34); Albumin 3.9 g/dL (3.4-4.8); Alkaline Phosphatase 101 U/L (40-110); Anion Gap 13 mmol/L (10-20); BUN (Urea Nitrogen) 18 mg/dL (9.8-20.1); Bilirubin, Total 0.6 mg/dL (0.2-1.2); Calc. Creatinine Clearance 0 mL/min (70-130); Carbon Dioxide 26 mmol/L (23-31); Chloride 107 mmol/L (98-107); Globulin 3.9 g/dL (2.4-3.5); Glucose 151 mg/dL (80-115); Lipase 22 U/L (8-78); Potassium 3.4 mmol/L (3.5-5.1); Protein, Total 7.8 g/dL (5.8-8.1); Sodium 143 mmol/L (136-145)
[2021-07-12 19:41] LABS: SARS-CoV-2 NAA Rapid Test Not Detected (NotDetected)
[2021-07-12] MEDS ORDERED: Ketorolac Tromethamine 30 MG/ML VIAL ONE (21:25)
[2021-07-12 21:48] LABS: Bilirubin Negative (Negative); Blood, Urine Small (Negative); Clarity Clear (Clear); Glucose, Urine (Dipstick) >=1000 mg/dL (Negative); Ketone, Urine Negative (Negative); Leukocyte Negative (Negative); Nitrite Negative (Negative); Protein, Urine (Dipstick) > or equal to 300 mg/dL (Neg-Trace); Specific Gravity, Urine 1.015 (1.005-1.030); Urobilinogen 0.2 mg/dL (Less than 2)
[2021-07-12 21:53] LABS: WBC/HPF 0-3 HPF (0-3)
[2021-07-12] MEDS ORDERED: Doxycycline 100 MG CAP ONE (22:02)
[2021-07-12] MEDS ORDERED: Ondansetron ODT 4 MG TAB ONE (22:07)
== END 2021-07-12 22:20 | disposition home or self-care (01) ==
LOC: MADERS 17:43
DX: J18.9 Pneumonia, unspecified organism (principal); J06.9 Acute upper respiratory infection, unspecified; K52.9 Noninfective gastroenteritis and colitis, unspecified; I10 Essential (primary) hypertension; E11.9 Type 2 diabetes mellitus without complications; E78.5 Hyperlipidemia, unspecified; J44.9 Chronic obstructive pulmonary disease, unspecified; F17.210 Nicotine dependence, cigarettes, uncomplicated; Z20.822 Contact with and (suspected) exposure to COVID-19
CPT/HCPCS: 0240U; 71045; 74177; 80053; 81003; 81015; 83605; 83690; 83735; 83880; 85025; 96374; J1885; Q0162; Q9967

== ENCOUNTER 2022-01-18 04:56 | Emergency (ER) | payer MEDICARE ==
[2022-01-18] MEDS ORDERED: Acetaminophen 500 MG TAB ONE (05:32)
[2022-01-18 06:28] LABS: Mean Corpuscular Hemoglobin 27.7 pg (27.0-31.0); Mean Corpuscular Volume 89.2 fL (78.0-98.0); Mean Platelet Volume 6.7 fL (7.4-10.4); Platelet Count 290 thou/uL (130-400); Red Blood Cell (RBC) Count 4.71 mill/uL (4.20-5.40); White Blood Cell (WBC) Count 10.1 thou/uL (4.8-10.8)
[2022-01-18 06:34] LABS: MDiff Complete? YES; Manual Diff?? YES; Neutrophil 78 % (42-75)
[2022-01-18 06:35] LABS: Band 1 % (5-11); Lymphocytes 15 % (21-51); Monocytes 6 % (0-10); Platelet Morphology Comment Appears Adequate; RBC Morphology Normal
[2022-01-18 06:39] LABS: ALT (SGPT) 15 U/L (8-55); AST (SGOT) 13 U/L (5-34); Albumin 3.9 g/dL (3.4-4.8); Alkaline Phosphatase 90 U/L (40-110); Anion Gap 19 mmol/L (10-20); BUN (Urea Nitrogen) 23 mg/dL (9.8-20.1); Bilirubin, Total 0.3 mg/dL (0.2-1.2); Calc. Creatinine Clearance 0 mL/min (70-130); Calcium 8.9 mg/dL (7.8-10.44); Carbon Dioxide 18 mmol/L (23-31); Chloride 109 mmol/L (98-107); Globulin 4.1 g/dL (2.4-3.5); Potassium 4.4 mmol/L (3.5-5.1); Sodium 142 mmol/L (136-145)
[2022-01-18 06:45] LABS: Glucose 36 mg/dL (80-115)
[2022-01-18 06:52] LABS: Bicarbonate (HCO3v) 20.2 mmol/L (22.0-28.0); CO2 Tension (PvCO2) 30.6 mmHg (42.0-51.0)
[2022-01-18 06:53] LABS: Calcium, Ionized 1.07 mmol/L (1.15-1.33); Chloride 113 mmol/L (98-107); Potassium 4.3 mmol/L (3.5-5.1); Sodium 144 mmol/L (138-145); T. Carbon Dioxide 21.1 mmol/L (22.0-28.0); vO2 Saturation-calc 99.7 % (60.0-85.0)
[2022-01-18] MEDS ORDERED: Sodium Chloride 0.9% 500 ML ONE (07:09)
[2022-01-18] MEDS ORDERED: Ibuprofen 600 MG TAB ONE (07:44)
== END 2022-01-18 08:54 | disposition home or self-care (01) ==
LOC: MADERS 04:56
DX: E11.649 Type 2 diabetes mellitus with hypoglycemia without coma (principal); E78.5 Hyperlipidemia, unspecified; I10 Essential (primary) hypertension; J44.9 Chronic obstructive pulmonary disease, unspecified; F17.210 Nicotine dependence, cigarettes, uncomplicated
CPT/HCPCS: 36416; 70450; 80053; 82330; 82803; 84443; 85025; 93005; 94760; 96360; J7030

== ENCOUNTER 2022-08-31 11:18 | Outpatient (CLI) | payer MEDICARE ==
[2022-08-31 11:54] LABS: ALT (SGPT) 11 U/L (8-55); AST (SGOT) 6 U/L (5-34); Albumin 3.6 g/dL (3.4-4.8); Alkaline Phosphatase 85 U/L (40-110); Anion Gap 14 mmol/L (10-20); BUN (Urea Nitrogen) 22 mg/dL (9.8-20.1); Bilirubin, Total 0.3 mg/dL (0.2-1.2); Calc. Creatinine Clearance 0 mL/min (70-130); Calcium 9.4 mg/dL (7.8-10.44); Carbon Dioxide 26 mmol/L (23-31); Cardiac Risk 4.5 (Less than 4.5); Chloride 108 mmol/L (98-107); Cholesterol 233 mg/dl (< 200 Desired); Estimated GFR 59; Globulin 3.9 g/dL (2.4-3.5); Glucose 190 mg/dL (80-115); HDL Cholesterol 52 mg/dL (>60 Neg Risk); LDL Cholesterol, Calculated 150 mg/dL; Potassium 3.8 mmol/L (3.5-5.1); Protein, Total 7.5 g/dL (5.8-8.1); Sodium 144 mmol/L (136-145); Triglycerides 156 mg/dL (Less than 150); Uric Acid 6.1 mg/dL (2.6-6.0)
[2022-09-01 12:10] LABS: Hemoglobin A1c 7.6 % (4.0-6.0)
== END 2022-08-31 11:19 | disposition home or self-care (01) ==
LOC: MADLAB 11:18
PROVIDERS: ATTEND Family Medicine
DX: E78.5 Hyperlipidemia, unspecified (principal); E79.0 Hyperuricemia without signs of inflammatory arthritis and tophaceous disease; E11.9 Type 2 diabetes mellitus without complications
CPT/HCPCS: 36415; 80053; 80061; 83036; 84550